=== PATIENT | male | born 1980 | race Caucasian/White ===

== ENCOUNTER 2025-06-11 17:46 | Emergency (ER) | payer MEDICAID ==
[~2025-06-11] VITALS: Ht 177.8 cm; Wt 90.0 kg
[2025-06-11 18:04] VITALS: TEMP 36.7; O2SAT 100
[2025-06-11 18:07] VITALS: O2SAT 99
[2025-06-11] MEDS: KETOROLAC 30MG/ML VIAL IM ONE (18:56)
[2025-06-11 18:57] VITALS: BP 159/93; PULSE 103; RESP 16
[2025-06-11] MEDS: HYDROCODONE/ACETAMINOPHEN 5/325MG TABLET PO ONE (18:57)
[2025-06-11] MEDS ORDERED: NAPR275T96 MT (20:31)
[2025-06-11] MEDS ORDERED: ACET-2708 MT (20:31)
== END 2025-06-11 21:27 | disposition home or self-care (01) ==
LOC: ER 17:46
DX: S43.402A Unspecified sprain of left shoulder joint, initial encounter (principal); S90.31XA Contusion of right foot, initial encounter; Z79.899 Other long term (current) drug therapy; Z98.890 Other specified postprocedural states; V29.99XA Rider (driver) (passenger) of other motorcycle injured in unspecified traffic accident, initial encounter; Y93.89 Activity, other specified; Y92.89 Other specified places as the place of occurrence of the external cause; Y99.8 Other external cause status
CPT/HCPCS: 99284; 73000; 73030; 73630; 96372; J1885; A4565